=== PATIENT | female | born 1985 ===

== ENCOUNTER 2022-06-16 13:44 | Emergency (ER) | payer OTHER ==
[~2022-06-16] VITALS: Ht 165.1 cm; Wt 54.4 kg
[~2022-06-16 13:44] MED LIST: ANTIVERT25 M1 PO
== END 2022-06-16 16:39 | disposition left against medical advice (07) ==
LOC: ER 13:44
DX: N75.8 Other diseases of Bartholin's gland (principal); Z91.013 Allergy to seafood; Z88.0 Allergy status to penicillin